=== PATIENT | male | born 1955 | race Caucasian/White ===

== ENCOUNTER → 2019-04-29 09:00 | Outpatient (CLI) | payer MEDICARE ==
[2019-04-29 18:29] LABS: CHOL - HDL RATIO 3.7 ratio (2.3-4.9)
--- NOTE | 2019-05-01 12:52 | EC ---
PATIENT:CHANCE MCKENNA DATE OF SERVICE: 04/29/19 SEX: M MEDICAL RECORD: [id number] DATE OF : 51 LOCATION:[facility], [place] AGE OF PATIENT: 63 ADMISSION DATE: 04/29/19 REFERRING PHYSICIAN: INTERPRETING PHYSICIAN: JEANCARLOS HERNANDEZ MD ECHOCARDIOGRAM REPORT ECHO CHARGES 4 ECHO COMPLETE Date: 04/29/19 CLINICAL DIAGNOSIS: DYSNPNEA H/O HTN/CAD ECHOCARDIOGRAPHIC MEASUREMENTS (adult normal given) AC root (d.<3.7cm) 2.7 cm LV Septum d (<1.2 cm> 1.4 cm Valve Excursion 1.8 cm LV Septum (systole) 1.9 cm Left Atria (s.<4.0cm> 4.6 cm LVPW d(<1.2cm) 1.1 cm RV (d.<2.3cm) 3.1 cm LVPW (sytole) 1.7 cm LV diastole(<5.6CM) 5.4 cm MV E-F(>70mm/sec) cm LV systole 3.4 cm LVOT Diameter 2.0 cm MV exc.(>10mm) cm Est.ejection fraction (50-75%) % DOPPLER: LVIT cm/sec A 87.0 cm/sec E 74.0 cm/sec LA cm/sec RVSP 43.0 mmHg LVOT 103 cm/sec AOP1/2T m/s Asc. Ao 183 cm/sec RVOT 51.0 cm/sec RA cm/sec PA 88.0 cm/sec AV Gradient Peak 14.0 mmHg AV Mean 7.6 mmHg AV Area 1.5 cm MV Gradient Peak 4.4 mmHg MV Mean 1.5 mmHg MV Area cm COMMENTS: OP - HC Street Commissioner: 1 LISA MOON Apiculturist: 3 Dr. Jackman TAPE# PACS Pericardial Effusion N DATE OF SERVICE: Adequate 2D, color flow imaging, spectral Doppler, and M-mode. LVH is present. Mild LV internal dimension is normal. Wall motion is normal. EF greater than or equal to 55%. Aortic valve is tricuspid. No evidence of stenosis by Doppler interrogation. Left atrium dilated at 4.6 cm. Mitral valve shows no prolapse. Mild MR. Right-sided chambers are grossly normal. Trace TR. ECHOCARDIOGRAM REPORT [id number] CHANCE MCKENNA TRANSINT:[id number] Voice Confirmation ID: [id number] DOCUMENT ID: [id number] JEANCARLOS HERNANDEZ MD at 1252 CC: [id number] DICTATION DATE: 04/30/19 161 CNC PROGRAMMER: 05/01/19 0003 DEP CLI 04/29/19 [place] [id number] [place] [id number]
== END | disposition home or self-care (01) ==
LOC: D.HCCECHO 09:00 → D.HCCARDIO 09:30
PROVIDERS: ATTEND Internal Medicine Interventional Cardiology
DX: R06.00 Dyspnea, unspecified (principal)

== ENCOUNTER → 2020-11-30 11:04 | Outpatient (CLI) | payer MEDICARE | END | disposition home or self-care (01) | LOC: D.HCCECHO 11:04 | PROVIDERS: ATTEND Internal Medicine Interventional Cardiology | DX: I25.10 Atherosclerotic heart disease of native coronary artery without angina pectoris (principal) ==